=== PATIENT | female | born 1955 | race Caucasian/White ===

== ENCOUNTER 2017-12-29 18:57 | Emergency (ER) | payer BC ==
--- NOTE | 2017-12-29 19:25 | ERPHSYRPT ---
- History of Present Illness Time Seen by Provider: 12/29/17 19:10 Source: patient Exam Limitations: no limitations Patient Subjective Stated Complaint: pt vandana she had a parathyroidectomy today and has beenhaving bleeding from the incision since leaving the hosptoday. vandana borjas has soaked 5 bandages since leaving the hosp at 1600 Triage Nursing Assessment: pt alert and oriented, answers questions approp. voice raspy, respiration s nonlabored with lungs cta. incision noted to anterior neck with small amt of bleeding to lt side, bruising around incision, dermabond owtherwise intact. incision well approximated. Physician History: 62 y/o female s/p parathyroidectomy this morning comes to the ER with complaints of bleeding from the incision site. Pt states that she has gone through 4 bandages and the bleeding is coming from one site. Pt admits that the bleeding has subsided and was bleeding more prior to coming to the ER. Pt denies any dizziness, shortness of breath or sensation of throat closing. No fever or chills. Timing/Duration: today Associated Symptoms: No fever Allergies/Adverse Reactions: latex Allergy (Severe, Verified 12/29/17 19:21) blisters meperidine HCl [From Demerol] Allergy (Severe, Verified 12/29/17 19:21) hallucinations hallucinations Estrogens Allergy (Verified 12/29/17 19:21) Hives lanolin Allergy (Verified 12/29/17 19:21) Rash milk Allergy (Verified 12/29/17 19:21) Nausea and Vomiting morphine Allergy (Verified 12/29/17 19:21) hallucinations Rho(D) immune globulin [From RhoGam] Allergy (Verified 12/29/17 19:21) acetaminophen Adverse Reaction (Verified 12/29/17 19:21) Vomiting diphenhydramine [From Benadryl] Adverse Reaction (Verified 12/29/17 19:21) Nausea and Vomiting epinephrine Adverse Reaction (Verified 12/29/17 19:21) Irregular Heart Beat hydrocodone Adverse Reaction (Verified 12/29/17 19:21) Vomiting nickel Adverse Reaction (Verified 12/29/17 19:21) Swelling all synthetic drugs Allergy (Uncoded 12/29/17 19:21) hallucinations bread Allergy (Uncoded 05/04/16 09:11) dairy products Allergy (Uncoded 12/29/17 19:21) quinoa Allergy (Uncoded 12/29/17 19:21) Tightness of Throat anesthesia Adverse Reaction (Uncoded 12/29/17 19:21) hallucinations pain medications Adverse Reaction (Uncoded 12/29/17 19:21) hallucinations Home Medications: Multivitamin [Multivitamins] 1 tab PO DAILY 10/28/15 [History] Sumatriptan Succinate [Imitrex] 50 mg PO UD PRN 05/01/16 [History] Hx Tetanus, Diphtheria Vaccination/Date Given: Yes Hx Influenza Vaccination/Date Given: No Hx Pneumococcal Vaccination/Date Given: No Immunizations Up to Date: Yes - Review of Systems Constitutional: No Fever, No Chills Eyes: No Symptoms Ears, Nose, & Throat: No Symptoms, No Throat Pain Respiratory: No Cough, No Dyspnea Cardiac: No Chest Pain, No Edema, No Syncope Abdominal/Gastrointestinal: No Abdominal Pain, No Nausea, No Vomiting, No Diarrhea Genitourinary Symptoms: No Dysuria Musculoskeletal: No Back Pain, No Neck Pain Skin: Other (small area of bleeding), No Rash Neurological: No Dizziness, No Focal Weakness, No Sensory Changes Psychological: No Symptoms Endocrine: No Symptoms All Other Systems: Reviewed and Negative - Past Medical History Pertinent Past Medical History: Yes Neurological History: Migraines ENT History: Cataracts Cardiac History: No Pertinent History Respiratory History: Asthma Endocrine Medical History: No Pertinent History Musculoskeletal History: Fractures GI Medical History: Hemorrhoids History: No Pertinent History Psycho-Social History: No Pertinent History Female Reproductive Disorders: Fibroids Other Medical History: asthma in past,nasal fx.,right elbow,left shoulder inside bone shattered,toes,finger - Past Surgical History Past Surgical History: Yes Neuro Surgical History: No Pertinent History Cardiac: No Pertinent History Respiratory: No Pertinent History Gastrointestinal: Appendectomy Genitourinary: No Pertinent History Musculoskeletal: Other Female Surgical History: Section, Hysterectomy, Lumpectomy, Tubal Ligation Other Surgical History: left shoulder surgery-repaired rotator cuff and the slat muscle. right ovary tube removed. bilateral breast bx's/lumpectomy's. tonsils and adenoids. parathyroidectomy - Social History Smoking Status: Former smoker Exposure to second hand smoke: No Drug Use: none Patient Lives Alone: No - Nursing Vital Signs Nursing Vital Signs: Initial Vital Signs Temperature 98.1 F 12/29/17 19:09 Pulse Rate 86 12/29/17 19:09 Respiratory Rate 16 05/16/18 19:09 Blood Pressure 126/62 12/29/17 19:09 O2 Sat by Pulse Oximetry 96 12/29/17 19:09 Pain Scale Pain Intensity 2 - Physical Exam General Appearance: no apparent distress, alert Eye Exam: PERRL/EOMI, eyes nml inspection Ears, Nose, Throat Exam: normal ENT inspection, pharynx normal, moist mucous membranes Neck Exam: normal inspection, non-tender, supple, full range of motion, other ( small area of bleeding on left side of incision site. ), No midline tenderness Respiratory Exam: normal breath sounds, lungs clear, No respiratory distress Cardiovascular Exam: regular rate/rhythm, normal heart sounds Gastrointestinal/Abdomen Exam: soft, mass, No tenderness Back Exam: normal inspection, normal range of motion, No CVA tenderness, No vertebral tenderness Extremity Exam: normal inspection, normal range of motion Neurologic Exam: alert, oriented x 3, cooperative, normal mood/affect, sensation nml, No motor deficits Skin Exam: normal color, warm, dry SpO2: 96 Oxygen Delivery: Room Air - Course Nursing assessment & vital signs reviewed: Yes - Progress Progress: improved Progress Note: 12/29/17 20:29 There is less bleeding after patient applied pressure. I spoke to Dr Cartwright who recommended that the patient have compression dressings applied and she needs to call Dr Cartwright in the morning. - Departure Time of Disposition: 20:30 Departure Disposition: Home Clinical Impression: Post-op bleeding Qualifiers: Surgical complication system/body Area: skin Procedure type: dermatologic Qualified Code(s): L76.21 - Postprocedural hemorrhage of skin and subcutaneous tissue following a dermatologic procedure Condition: Stable Critical Care Time: No Referrals: LARISA HATFIELD [Primary Care Provider] - Instructions: Bleeding After Surgery Additional Instructions: Call Dr. Cartwright in the morning for him to see the incision site. Keep your head elevated and do not move your head excessively.
[2017-12-29 20:40] VITALS: BP 107/53; PULSE 78; O2SAT 97
== END 2017-12-29 20:48 | disposition home or self-care (01) ==
LOC: ED 18:57
DX: E89.810 Postprocedural hemorrhage of an endocrine system organ or structure following an endocrine system procedure (principal)
CPT/HCPCS: 99283